=== PATIENT | female | born 1995 | race Caucasian/White ===

== ENCOUNTER 2019-09-20 21:49 | Emergency (ER) | payer OTHER ==
[~2019-09-20] VITALS: Ht 160 cm; Wt 66.7 kg
[2019-09-20 21:54] VITALS: BP 147/78
--- NOTE | 2019-09-20 21:58 | NUR ---
PT AMBULATED TO BED #11
--- NOTE | 2019-09-20 22:00 | NUR ---
23 y/o female c/o hematuria x 1900 today. rates pain 3/10 and describes it as burning. vss. urine assessment shows blood red tinge appearance. pt states she has dysuria, burning sensation when she pees and hematuria. denies any fever, n,v,d, flank pain, suprapubic tenderness, or body aches. heart sounds s1s2 present. lung sounds clear all throughout. a&ox4. steady gait. nka. pmh: gastritis.
[2019-09-21 00:39] VITALS: BP 138/74
--- NOTE | 2019-09-21 00:39 | NUR ---
Patient discharged with v/s stable. Written and verbal after care instructions given and explained. Patient verbalized understanding. Ambulatory with steady gait. All questions addressed prior to discharge. Advised to follow up with PMD.
== END 2019-09-21 00:39 | disposition home or self-care (01) ==
LOC: MED 21:49
DX: N93.9 Abnormal uterine and vaginal bleeding, unspecified (principal); I10 Essential (primary) hypertension
CPT/HCPCS: 81002; 81025; 99281; 99282